=== PATIENT | female | born 1955 | race Caucasian/White ===

== ENCOUNTER 2020-02-12 04:22 | Emergency (ER) | payer OTHER ==
[~2020-02-12] VITALS: Ht 165.1 cm; Wt 90.7 kg
[2020-02-12 04:25] VITALS: Ht 165.1 cm; Wt 90.7 kg
[2020-02-12 05:06] VITALS: BP 136/63
== END 2020-02-12 06:33 | disposition home or self-care (01) ==
LOC: ED 04:22
DX: T36.0X5A Adverse effect of penicillins, initial encounter (principal); I10 Essential (primary) hypertension; Z88.1 Allergy status to other antibiotic agents; Y92.89 Other specified places as the place of occurrence of the external cause